=== PATIENT | male | born 1990 | race Caucasian/White ===

== ENCOUNTER 2018-06-15 20:00 | Emergency (ER) | payer SELFPAY ==
[2018-06-15] MEDS ORDERED: KETOROLAC 30 MG/ML VIAL IM ONE (20:17)
--- NOTE | 2018-06-15 20:39 | Emergency Department Record ---
History of Present Illness - General Chief complaint: Pain Stated complaint: INJURY TO RT ARM Time Seen by Provider: 06/15/18 20:16 Source: Patient Mode of Arrival: Ambulatory Limitations: No limitations - History of Present Illness Initial comments: pt injured his r forearm while lifting a pt. MD Complaint: Extremity pain Onset/Timin -: Minutes(s) Location: Right, Forearm History of Same: No Severity scale (1-10): 4 Quality: Aching Consistency: Constant Improves with: Nothing Worsens with: Nothing Associated Symptoms: Denies other symptoms - Related Data Home Medications Medication Instructions Recorded Confirmed Last Taken No Home Med [NO HOME MEDS] 06/15/18 06/15/18 Unknown Allergies Allergy/AdvReac Type Severity Reaction Status Date / Time hydrocodone [From [place]] Allergy SWELLING Verified 06/15/18 20:09 (GENERAL) Penicillins Allergy ANAPHYLAXIS Verified 06/15/18 20:09 Travel Screening - Travel/Exposure Within Last 30 Days Have you traveled within the last 30 days?: No - Travel Symptoms Symptom Screening: None Review of Systems Reviewed: No additional complaints except as noted below Constitutional: Reports: As per HPI. Denies: Chills, Fever, Malaise, Night sweats, Weakness, Weight change Eyes: Reports: As per HPI. Denies: Eye discharge, Eye pain, Photophobia, Vision change ENT: Reports: As per HPI. Denies: Congestion, Dental pain, Ear pain, Epistaxis , Hearing loss, Throat pain Respiratory: Reports: As per HPI. Denies: Cough, Dyspnea, Hemoptysis, Stridor, Wheezes Cardiovascular: Reports: As per HPI. Denies: Arrhythmia, Chest pain, Dyspnea on exertion, Edema, Murmurs, Orthopnea, Palpitations, Paroxysmal nocturnal dyspnea, Rheumatic Fever, Syncope Endocrine: Reports: As per HPI. Denies: Fatigue, Heat or cold intolerance, Polydipsia, Polyuria Gastrointestinal: Reports: As per HPI. Denies: Abdominal pain, Constipation, Diarrhea, Hematemesis, Hematochezia, Melena, Nausea, Vomiting Genitourinary: Reports: As per HPI. Denies: Dysuria, Frequency, Hematuria, Incontinence, Retention, Testicular pain, Testicular mass, Urgency Musculoskeletal: Reports: As per HPI. Denies: Arthralgia, Back pain, Gout, Joint swelling, Myalgia, Neck pain Skin: Reports: As per HPI. Denies: Bruising, Change in color, Change in hair/ nails, Lesions, Pruritus, Rash Neurological: Reports: As per HPI. Denies: Abnormal gait, Confusion, Headache, Numbness, Paresthesias, Seizure, Tingling, Tremors, Vertigo, Weakness Psychiatric: Reports: As per HPI. Denies: Anxiety, Auditory hallucinations, Depression, Homicidal thoughts, Suicidal thoughts, Visual hallucinations Hematological/Lymphatic: Reports: As per HPI. Denies: Anemia, Blood Clots, Easy bleeding, Easy bruising, Swollen glands Past Medical History - SOCIAL HISTORY Smoking Status: Never smoker Alcohol Use: None Drug Use: None - RESPIRATORY Hx Respiratory Disorders: No - CARDIOVASCULAR Hx Cardio Disorders: No - NEURO Hx Neuro Disorders: No - GI Hx GI Disorders: No - Hx Genitourinary Disorders: No - ENDOCRINE Hx Endocrine Disorders: No - MUSCULOSKELETAL Hx Musculoskeletal Disorders: No - PSYCH Hx Psych Problems: Yes Hx Anxiety: Yes - HEMATOLOGY/ONCOLOGY Hx Hematology/Oncology Disorders: No Family Medical History Any Significant Family History?: No Physical Exam - General General Appearance: Alert, Oriented x3, Cooperative, Mild distress - Head Head exam: Normal inspection - Eye Eye exam: Normal appearance, PERRL, EOMI Pupils: Normal accommodation - ENT ENT exam: Normal exam, Mucous membranes moist, Normal external ear exam, Normal orophraynx Ear exam: Normal external inspection. negative: External canal tenderness Nasal Exam: Normal inspection. negative: Discharge, Sinus tenderness Mouth exam: Normal external inspection, Tongue normal Teeth exam: Normal inspection. negative: Dental caries Throat exam: Normal inspection. negative: Tonsillar erythema, Tonsillar exudate - Neck Neck exam: Normal inspection, Full ROM. negative: Tenderness - Respiratory Respiratory exam: Normal lung sounds bilaterally. negative: Respiratory distress - Cardiovascular Cardiovascular Exam: Regular rate, Normal rhythm, Normal heart sounds - GI/Abdominal GI/Abdominal exam: Soft, Normal bowel sounds. negative: Tenderness - Rectal Rectal exam: Deferred - exam: Deferred - Extremities Extremities exam: Normal inspection, Full ROM, Normal capillary refill, Tenderness (r forearm) - Back Back exam: Reports: Normal inspection, Full ROM. Denies: Muscle spasm, Rash noted, Tenderness - Neurological Neurological exam: Alert, Normal gait, Oriented X3, Reflexes normal - Psychiatric Psychiatric exam: Normal affect, Normal mood - Skin Skin exam: Dry, Intact, Normal color, Warm Course Vital Signs 06/15/18 20:07 Temperature 98.5 F Pulse Rate [ 82 Left] Respiratory 16 Rate Blood Pressure 135/91 [Left Arm] Pulse Ox 97 Disposition Disposition: Discharge Clinical Impression: Tenderness of brachioradialis muscle Disposition: Home, Self-Care Condition: (1) Good Instructions: Muscle Strain (ED) Additional Instructions: follow up with family doctor. return sooner if worse. ice and elevate. motrin for pain. no loifting more then 5 lbs for 5 days Forms: Patient Portal Access, Return to Work/School Quality - Quality Measures Quality Measures: N/A - Blood Pressure Screening Does Patient Have Any of the Following: No Blood Pressure Classification: Hypertensive Reading Systolic Measurement: 135 Diastolic Measurement: 91 Screening for High Blood Pressure: < Pre-Hypertensive BP, F/U Documented > [ G8950] Pre-Hypertensive Follow-up Interventions: Follow-up with rescreen every year.
--- NOTE | 2018-06-20 05:42 | RADIOLOGY REPORT ---
DATE: 06/15/2018. EXAM: RIGHT FOREARM RADIOGRAPHS. HISTORY: Mid forearm pain following injury. TECHNIQUE: Two views of the right forearm. COMPARISON: None. FINDINGS: No acute fracture is seen. No radiopaque foreign body. No evidence of dislocation at the elbow or wrist. IMPRESSION: NO ACUTE OSSEOUS FINDINGS. Job Number: [id number] MTDD
== END 2018-06-15 21:23 | disposition home or self-care (01) ==
LOC: ER 20:00
DX: G89.11 Acute pain due to trauma (principal); M79.631 Pain in right forearm; M79.18 Myalgia, other site; X50.0XXA Overexertion from strenuous movement or load, initial encounter; Y93.F2 Activity, caregiving, lifting; Y92.129 Unspecified place in nursing home as the place of occurrence of the external cause; Y99.0 Civilian activity done for income or pay
CPT/HCPCS: 99283; 96372; 99284; 73090; J1885

== ENCOUNTER 2019-01-08 21:41 | Emergency (ER) | payer MEDICAID ==
[2019-01-08] MEDS ORDERED: CEPHALEXIN 500 MG CAPSULE PO STA (22:06)
--- NOTE | 2019-01-08 22:10 | Emergency Department Record ---
History of Present Illness - General Chief Complaint: Ankle/Foot Injury Stated Complaint: INFECTION LT BIG TOE Time Seen by Provider: 01/08/19 21:50 Source: Patient Mode of Arrival: Ambulatory Limitations: No limitations - History of Present Illness Initial Comments: 28 yo male presents to ED for evaluation of swelling, redness, and discharge from the lateral aspect of the left great toe, reports history of ingrown toenails previously. Patient reports soaking the toe in warm water at home, but was concerned about possible infection as well. Patient denies fevers, chills, or other recent illness. Patient denies health problems at his baseline. MD Complaint: Other (Toe emeli) Onset/Timin -: Days(s) Injury: Toes: Right Type of Injury: Other Place: Home Severity scale (1-10): 5 Improves With: Nothing Worsens With: Weight bearing Context: Other Treatments Prior to Arrival: NSAIDS - Related Data Previous Rx's Medication Instructions Recorded Cephalexin [Keflex] 500 mg PO QID #27 cap 01/08/19 Allergies Allergy/AdvReac Type Severity Reaction Status Date / Time hydrocodone [From [place]] Allergy SWELLING Verified 01/08/19 21:53 (GENERAL) Penicillins Allergy ANAPHYLAXIS Verified 01/08/19 21:53 Travel Screening - Travel/Exposure Within Last 30 Days Have you traveled within the last 30 days?: No - Travel/Exposure Within Last Year Have you traveled outside the [place] in the last year?: No - Additonal Travel Details Have you been exposed to anyone with a communicable illness?: No - Travel Symptoms Symptom Screening: None Review of Systems Constitutional: Denies: Chills, Fever, Malaise, Night sweats Eyes: Denies: Eye discharge, Eye pain ENT: Denies: Congestion, Ear pain, Epistaxis Respiratory: Denies: Cough, Dyspnea Cardiovascular: Denies: Chest pain, Dyspnea on exertion Endocrine: Denies: Fatigue, Heat or cold intolerance Gastrointestinal: Denies: Abdominal pain, Nausea, Vomiting Genitourinary: Denies: Incontinence, Retention Musculoskeletal: Denies: Arthralgia, Back pain Skin: Reports: Change in color (Redness). Denies: Bruising, Change in hair/nails Neurological: Denies: Abnormal gait, Confusion, Headache, Seizure Psychiatric: Denies: Anxiety Hematological/Lymphatic: Denies: Anemia, Blood Clots Past Medical History - SOCIAL HISTORY Smoking Status: Never smoker Alcohol Use: Occasional Drug Use: None - RESPIRATORY Hx Respiratory Disorders: No - CARDIOVASCULAR Hx Cardio Disorders: No - NEURO Hx Neuro Disorders: No - GI Hx GI Disorders: No - Hx Genitourinary Disorders: No - ENDOCRINE Hx Endocrine Disorders: No - MUSCULOSKELETAL Hx Musculoskeletal Disorders: No - PSYCH Hx Psych Problems: Yes Hx Anxiety: Yes - HEMATOLOGY/ONCOLOGY Hx Hematology/Oncology Disorders: No Hx Cancer: Yes (melanoma back and stomach) Family Medical History Any Significant Family History?: No Physical Exam - General General Appearance: Alert, Oriented x3, Cooperative, Mild distress Limitations: No limitations - Head Head exam: Atraumatic, Normocephalic, Normal inspection Head exam detail: negative: Abrasion, Contusion, Kessler's sign, General tenderness, Hematoma, Laceration - Eye Eye exam: Normal appearance. negative: Conjunctival injection, Periorbital swelling, Periorbital tenderness, Scleral icterus - ENT Ear exam: negative: Auricular hematoma, Auricular trauma Nasal Exam: negative: Active bleeding, Discharge, Dried blood, Foreign body Mouth exam: negative: Drooling, Laceration, Muffled voice, Tongue elevation - Neck Neck exam: Normal inspection. negative: Meningismus, Tenderness - Respiratory Respiratory exam: Normal lung sounds bilaterally. negative: Rales, Respiratory distress, Rhonchi, Stridor - Cardiovascular Cardiovascular Exam: Regular rate, Normal rhythm, Normal heart sounds - GI/Abdominal GI/Abdominal exam: Soft. negative: Rebound, Rigid, Tenderness - Rectal Rectal exam: Deferred - exam: Deferred - Extremities Extremities exam: Tenderness, Other (Mild erythema to the left great toe medially, ingown nail is present.). negative: Calf tenderness, Pedal edema - Back Back exam: Denies: CVA tenderness (R), CVA tenderness (L) - Neurological Neurological exam: Alert, Normal gait, Oriented X3 - Psychiatric Psychiatric exam: Normal affect, Normal mood - Skin Skin exam: Normal color. negative: Abrasion Type of lesion: negative: abrasion Course Vital Signs 01/08/19 21:49 Temperature 98.4 F Pulse Rate [ 79 Pulse Ox Probe] Respiratory 20 Rate Blood Pressure 136/93 [Left Arm] Pulse Ox 96 - Reevaluation(s) Reevaluation #1: 01/08/19 22:15 Patient was seen and examined Examination appears c/w ingrown nail Will treat with Keflex for possible infection Recommended continued warm soaks Will refer the patient to follow-up with Dr. Mendoza for further evaluation. Disposition Disposition: Discharge Clinical Impression: Ingrown toenail of right foot Disposition: Home, Self-Care Condition: (2) Stable Instructions: Ingrown Nail (ED) Additional Instructions: Return to ED if your symptoms worsen or if you have any concerns. Keflex as directed. Warm soaks as directed. Follow-up with your family doctor in 3-5 days as directed. Prescriptions: Cephalexin [Keflex] 500 mg PO QID #27 cap Referrals: Berny Mendoza, NajmaP.MAna Cristina [DOCTOR OF PODIATRY MEDICINE] - Forms: Patient Portal Access Time of Disposition: 22:09 Quality - Quality Measures Quality Measures: N/A - Blood Pressure Screening Does Patient Have Any of the Following: No Blood Pressure Classification: Hypertensive Reading Systolic Measurement: 136 Diastolic Measurement: 93 Screening for High Blood Pressure: < First Hypertensive BP, F/U Documented > [G8950] First Hypertensive Follow-up Interventions: Referral to alternative/primary care provider.
== END 2019-01-08 22:17 | disposition home or self-care (01) ==
LOC: ER 21:41
DX: L60.0 Ingrowing nail (principal)
CPT/HCPCS: 99283

== ENCOUNTER 2019-01-29 13:39 | Emergency (ER) | payer MEDICAID ==
[2019-01-29] MEDS ORDERED: ONDANSETRON HCL IV 4 MG/2 ML VIAL IV ONE (13:55)
[2019-01-29] MEDS ORDERED: 0.9 % SODIUM CHLORIDE 1,000 ML BAG IV ONE (13:55)
[2019-01-29] MEDS ORDERED: KETOROLAC 30 MG/ML VIAL IVP ONE (13:56)
--- NOTE | 2019-01-29 14:05 | Emergency Department Record ---
History of Present Illness - General Chief Complaint: Abdominal Pain Stated Complaint: LOWER RT ABN PAIN Time Seen by Provider: 01/29/19 13:50 Source: Patient Mode of Arrival: Ambulatory Limitations: No limitations - History of Present Illness Initial Comments: The patient is here due to the acute onset of RLQ sharp stabbing pain. The onset was almost 2 hours ago and he does have mild nausea with it. The patient has not vomited and denies any recent dysuria, fever, chills, or diarrhea. The patient has no hx of any abdominal surgeries. MD Complaint: Abdominal pain Onset/Timin -: Hour(s) Location: RLQ Radiation: None Migration to: No migration Severity: Severe Severity scale (1-10): 10 Quality: Sharp Consistency: Constant Improves With: Nothing Worsens With: Nothing Associated Symptoms: Denies other symptoms - Related Data Previous Rx's Medication Instructions Recorded Ibuprofen [Motrin] 800 mg PO TID PRN #20 tab 01/29/19 Allergies Allergy/AdvReac Type Severity Reaction Status Date / Time hydrocodone [From [place]] Allergy SWELLING Verified 01/29/19 13:50 (GENERAL) Penicillins Allergy ANAPHYLAXIS Verified 01/29/19 13:50 Travel Screening - Travel/Exposure Within Last 30 Days Have you traveled within the last 30 days?: No Review of Systems Constitutional: Denies: Chills Eyes: Denies: Eye discharge ENT: Denies: Congestion Respiratory: Denies: Cough Past Medical History - SOCIAL HISTORY Smoking Status: Never smoker Alcohol Use: None Drug Use: None - RESPIRATORY Hx Respiratory Disorders: No - CARDIOVASCULAR Hx Cardio Disorders: No - NEURO Hx Neuro Disorders: No - GI Hx GI Disorders: No - Hx Genitourinary Disorders: No - ENDOCRINE Hx Endocrine Disorders: No - MUSCULOSKELETAL Hx Musculoskeletal Disorders: No - PSYCH Hx Psych Problems: Yes Hx Anxiety: Yes - HEMATOLOGY/ONCOLOGY Hx Hematology/Oncology Disorders: Yes Hx Cancer: Yes (melanoma back and stomach) Family Medical History Any Significant Family History?: No Physical Exam - General General Appearance: Alert, Oriented x3, Cooperative, No acute distress - Head Head exam: Atraumatic, Normocephalic, Normal inspection - Eye Eye exam: Normal appearance - Neck Neck exam: Normal inspection, Full ROM. negative: Tenderness - Respiratory Respiratory exam: Normal lung sounds bilaterally. negative: Respiratory distress - Cardiovascular Cardiovascular Exam: Regular rate, Normal rhythm, Normal heart sounds - GI/Abdominal GI/Abdominal exam: Soft, Normal bowel sounds, Tenderness (There is significant RLQ tenderness.). negative: Guarding, Rebound, Rigid - Extremities Extremities exam: Normal inspection, Full ROM, Normal capillary refill. negative: Tenderness Course Vital Signs 01/29/19 13:47 Temperature 98.5 F Pulse Rate 90 Respiratory 20 Rate Blood Pressure 145/105 Pulse Ox 96 - Reevaluation(s) Reevaluation #1: I did discuss the normal results with the patient. Due to no source of the pain being found I did plan on ordering a pelvic US to evaluate the ovaries. The patient is refusing that test because he states he will be getting rid of his ovaries and uterus soon. I did explain that this could be the source of the pain and it could lead to an abscess and need for surgery but he is still refusing. 01/29/19 16:07 Reevaluation #2: The patient is doing much better at this time. He is up walking with no pain or discomfort. I again did recommend a pelvic US but he is refusing. He is to be discharged on Motrin and will return to the ER for any worsening symptoms. 01/29/19 16:41 Medical Decision Making - Data Complexity MDM Data: Labs Ordered and/or Reviewed, X-Ray Ordered and/or Reviewed - Lab Data Result diagrams: 01/29/19 14:00 01/29/19 14:00 - Radiology Data Radiology results: Report reviewed (Abd CT: Neg for any acute changes. Neg Appy or kidney or ureter stone.) Disposition Disposition: Discharge Clinical Impression: Abdominal pain Qualifiers: Abdominal location: unspecified location Qualified Code(s): R10.9 - Unspecified abdominal pain Disposition: Home, Self-Care Condition: (2) Stable Instructions: Abdominal Pain (ED) Additional Instructions: Please rest and eat a very bland diet. Please take the Motrin for pain. Return to the ER for any worsening pain, any fever, or vomiting. Please return to the ER in the morning for recheck if there is any recurrent pain. Prescriptions: Ibuprofen [Motrin] 800 mg PO TID PRN #20 tab PRN Reason: Pain Forms: Patient Portal Access Time of Disposition: 16:43 Quality - Quality Measures Quality Measures: N/A - Blood Pressure Screening View Details: Yes Does Patient Have Any of the Following: No Blood Pressure Classification: Hypertensive Reading Systolic Measurement: 145 Diastolic Measurement: 105 Screening for High Blood Pressure: < First Hypertensive BP, F/U Documented > [G8950] First Hypertensive Follow-up Interventions: Referral to alternative/primary care provider.
[2019-01-29 14:06] LABS: ABSOLUTE NEUTROPHIL COUNT 5.04; BASO % 0.2 % (0-6); EOS % 1.2 % (0-6); GRAN % 60.2 % (47-80); HEMATOCRIT 47.9 % (42.0-52.0); HEMOGLOBIN 16.2 gm/dl (14.0-18.0); LYMPH % 30.5 % (16-45); MEAN CELL VOLUME 93.4 fl (81-97); MEAN CORPUSCULAR HEMOGLOBIN 31.6 pg (27-33); MEAN CORPUSCULAR HGB CONC 33.8 g/dl (32-36); MEAN PLATELET VOLUME 11.9 fl (7.4-10.4); MONO % 7.9 % (0-9); PLATELET COUNT 273 K/uL (130-400); RED BLOOD COUNT 5.13 M/uL (4.40-5.70); RED CELL DISTRIBUTION WIDTH 13.2 % (11.5-14.5); WHITE BLOOD COUNT W/O DIFF 8.4 K/uL (4.2-12.2)
[2019-01-29 14:21] LABS: BLOOD UREA NITROGEN 9 mg/dL (6-20); CREATININE 0.8 mg/dL (0.7-1.2); EST GLOMERULAR FILTRATION RATE > 60 mL/min
[2019-01-29 14:24] LABS: GLUCOSE,RANDOM 135 mg/dL (74-109)
[2019-01-29 14:59] LABS: URINE APPEARANCE CLOUDY; URINE BILIRUBIN NEGATIVE (NEGATIVE); URINE BLOOD NEGATIVE (NEGATIVE); URINE COLOR YELLOW; URINE GLUCOSE (UA) NEGATIVE (NEGATIVE); URINE KETONE NEGATIVE (NEGATIVE); URINE LEUKOCYTE ESTERASE TRACE (NEGATIVE); URINE NITRITE NEGATIVE (NEGATIVE); URINE PROTEIN NEGATIVE (NEGATIVE); URINE UROBILINOGEN 0.2 E.U./dL (0.20 - 1.00)
[2019-01-29 15:09] LABS: URINE AMORPHOUS SEDIMENT 2+; URINE EPITHELIAL CELLS 0 - 2 (FEW); URINE RBC 0 - 2 (NONE SEEN); URINE WBC 0 - 2 (0-2/hpf)
--- NOTE | 2019-01-29 15:41 | CT SCAN REPORT ---
EXAMINATION: CT Abdomen and Pelvis without IV Contrast EXAM DATE: 01/29/2019 3:33 PM TECHNIQUE: Standard protocol CT imaging of the abdomen and pelvis was performed without intravenous c ontrast. INDICATION: RLQ sharp pain COMPARISON: None ENCOUNTER: Not applicable CT ABDOMEN AND PELVIS FINDINGS: Lung Bases: There is subtle dependent atelectasis at the included extent of the lung bases. Hepatobiliary: The liver has a normal size with a smooth surface. There is no biliary dilatation and the gallbladder is unremarkable. Pancreas: The pancreas is unremarkable. Spleen: The spleen is not enlarged. Adrenals: The adrenal glands are normal. Gastrointestinal: The stomach and small bowel are normal with no obstruction or inflammation. The jarad endix is normal. The large bowel is within normal limits. Reproductive Organs: The uterus is anteverted and has a unremarkable CT appearance. Cystic follicular changes of the bilateral ovaries are seen. Lymphatic System: There is no adenopathy within the abdomen or pelvis. Vasculature: Normal caliber abdominal aorta Peritoneum: No free fluid, free air, or inflammation Assessment of the solid organs, soft tissues, and vascular structures is overall limited on noncontra st imaging, IMPRESSION: 1. Normal appendix. 2. No renal or urinary tract calculi. 3. No acute process of the abdomen and pelvis. Dictated by: Wili Mccoy DO on 01/29/2019 3:35 PM. .
[2019-01-29] MEDS ORDERED: ACETAMINOPHEN 1,000 MG/100 ML BTL IVPB ONE (15:55)
== END 2019-01-29 16:52 | disposition home or self-care (01) ==
LOC: ER 13:39
DX: R10.31 Right lower quadrant pain (principal); R11.0 Nausea
CPT/HCPCS: 74176; 80048; 81001; 84703; 85025; 96365; 96375; 99284; J1885; J2405; J7030

== ENCOUNTER 2019-02-08 06:36 | Emergency (ER) | payer MEDICAID ==
--- NOTE | 2019-02-08 07:12 | Emergency Department Record ---
History of Present Illness - General Chief complaint: Allergic Reaction Stated complaint: ALLERGIC REACTION Time Seen by Provider: 02/08/19 07:06 Source: Patient Mode of Arrival: Ambulatory - History of Present Illness Initial Comments: 28 yo presents with a concern about reaction to an antibiotic. The patient reports itchy red eyes since starting Cefdinir. No rash. He reports cough that is non productive. No lip, tongue, or throat swelling. No nausea, vomiting or diarrhea. NO fever. He was diagnosed with ROM in the [facility]. MD Complaint: Allergic reaction, Other (Medication reaction) Onset/Timin -: Days(s) Exposure: Medication Symptoms: Other Severity: Mild Treatment Prior to Arrival: None - Related Data Home Medications Medication Instructions Recorded Confirmed Last Taken Sertraline HCl [Zoloft] 50 mg PO DAILY 02/08/19 02/08/19 Unknown Previous Rx's Medication Instructions Recorded Ibuprofen [Motrin] 800 mg PO TID PRN #20 tab 01/29/19 Azithromycin [Zithromax] 250 mg PO DAILY #6 tab 02/08/19 Allergies Allergy/AdvReac Type Severity Reaction Status Date / Time hydrocodone [From [place]] Allergy SWELLING Verified 01/29/19 13:50 (GENERAL) Penicillins Allergy ANAPHYLAXIS Verified 01/29/19 13:50 Travel Screening - Travel/Exposure Within Last 30 Days Have you traveled within the last 30 days?: No Review of Systems Constitutional: Denies: Chills, Fever, Malaise, Weakness Eyes: Denies: Eye discharge, Eye pain ENT: Reports: Congestion, Ear pain (right), Throat pain Respiratory: Denies: Cough, Dyspnea, Hemoptysis, Wheezes Cardiovascular: Denies: Chest pain Endocrine: Denies: Fatigue Gastrointestinal: Denies: Abdominal pain, Diarrhea, Nausea, Vomiting Genitourinary: Denies: Dysuria, Frequency, Hematuria Musculoskeletal: Denies: Arthralgia, Back pain, Myalgia Skin: Denies: Bruising, Change in color, Rash Neurological: Denies: Headache Psychiatric: Denies: Anxiety Hematological/Lymphatic: Denies: Easy bleeding, Easy bruising Past Medical History - SOCIAL HISTORY Smoking Status: Never smoker - RESPIRATORY Hx Respiratory Disorders: No - CARDIOVASCULAR Hx Cardio Disorders: No - NEURO Hx Neuro Disorders: No - GI Hx GI Disorders: No - Hx Genitourinary Disorders: No - ENDOCRINE Hx Endocrine Disorders: No - MUSCULOSKELETAL Hx Musculoskeletal Disorders: No - PSYCH Hx Psych Problems: Yes Hx Anxiety: Yes - HEMATOLOGY/ONCOLOGY Hx Hematology/Oncology Disorders: Yes Hx Cancer: Yes (melanoma back and stomach) Family Medical History Any Significant Family History?: No Physical Exam - General General Appearance: Alert, Oriented x3, Cooperative, No acute distress Limitations: No limitations - Head Head exam: Atraumatic, Normal inspection - Eye Eye exam: Normal appearance, PERRL, Conjunctival injection (mild). negative: Scleral icterus - ENT ENT exam: Normal exam, Mucous membranes moist. negative: TM's normal bilaterally (Right OM with opaque fluid, no perforation) Ear exam: Normal external inspection Nasal Exam: Normal inspection Mouth exam: Normal external inspection Teeth exam: Normal inspection Throat exam: Normal inspection. negative: Tonsillar erythema, Tonsillomegaly, Tonsillar exudate, R peritonsillar mass, L peritonsillar mass - Neck Neck exam: Normal inspection. negative: Lymphadenopathy - Respiratory Respiratory exam: Normal lung sounds bilaterally. negative: Accessory muscle use, Respiratory distress, Rhonchi, Stridor, Wheezes - Cardiovascular Cardiovascular Exam: Regular rate, Normal rhythm, Normal heart sounds - GI/Abdominal GI/Abdominal exam: Soft - Rectal Rectal exam: Deferred - exam: Deferred - Back Back exam: Denies: CVA tenderness (R), CVA tenderness (L) - Neurological Neurological exam: Alert, Oriented X3 - Psychiatric Psychiatric exam: Normal affect, Normal mood - Skin Skin exam: Dry, Intact, Normal color, Warm Course Vital Signs 02/08/19 06:42 Temperature 97.7 F Pulse Rate [ 75 Pulse Ox Probe] Respiratory 20 Rate Blood Pressure 145/96 [Left Arm] Pulse Ox 97 - Reevaluation(s) Reevaluation #1: 02/08/19 07:14 Vitals reviewed He may be having an adverse reaction as apposed to acute allergic reaction Disposition Disposition: Discharge Clinical Impression: Otitis media Qualifiers: Otitis media type: unspecified Laterality: right Qualified Code(s): H66.91 - Otitis media, unspecified, right ear Disposition: Home, Self-Care Condition: (1) Good Instructions: Otitis Media (ED) Additional Instructions: Return or be seen if you have shortness of breath, swelling, hive (rash) or any other new symptoms or concerns Take the Zithromax as directed Have the ear rechecked in 5-7 days if not improved Prescriptions: Azithromycin [Zithromax] 250 mg PO DAILY #6 tab Time of Disposition: 07:09 Quality - Quality Measures Quality Measures: N/A - Blood Pressure Screening Does Patient Have Any of the Following: No Blood Pressure Classification: Hypertensive Reading Systolic Measurement: 145 Diastolic Measurement: 96 Screening for High Blood Pressure: < Pre-Hypertensive BP, F/U Documented > [G8950] Pre-Hypertensive Follow-up Interventions: Referral to alternative/primary care provider.
== END 2019-02-08 07:15 | disposition home or self-care (01) ==
LOC: ER 06:36
DX: H57.89 Other specified disorders of eye and adnexa (principal); T36.1X5A Adverse effect of cephalosporins and other beta-lactam antibiotics, initial encounter; H66.91 Otitis media, unspecified, right ear; R05 Cough
CPT/HCPCS: 99282